=== PATIENT | female | born 1995 | race African-American/Black ===

== ENCOUNTER 2020-02-22 23:02 | Emergency (ER) | payer OTHER ==
[~2020-02-22] VITALS: Ht 162.6 cm; Wt 106.8 kg
[2020-02-22 23:20] VITALS: TEMP 98.2
[2020-02-22 23:55] LABS: BASO % 0.4 % (0.0-2.0); EOS # 0.1 (0.0-0.7); EOS % 1.5 % (0-4.0); GRAN # 3.4 (1.4-6.5); GRAN % 42.8 % (42.2-75.2); HEMOGLOBIN 11.2 g/dl (12.5-16.0); LYMPH # 3.2 (1.2-3.4); MEAN CELL VOLUME 94 fl (80.0-100.0); MEAN CORPUSCULAR HEMOGLOBIN 30 pg (27.0-31.0); MEAN CORPUSCULAR HGB CONC 32 g/dl (33.0-37.0); MEAN PLATELET VOLUME 10.9 fl (7.4-10.4); MONO # 1.1 (0.1-0.6); MONO % 14.2 % (1.7-9.3); PLATELET COUNT 256 K/mm3 (130-400); RED BLOOD COUNT 3.72 M/mm3 (4.10-5.30); REDCELL DISTRIBUTION WIDTH-CV 12.5 % (11.5-14.5)
[2020-02-23 00:07] LABS: ALANINE AMINOTRANSFERASE 23 U/L (4-34); ALBUMIN 4.2 gm/dL (3.5-5.0); ALKALINE PHOSPHATASE 76 U/L (50-136); ANION GAP 8 mmol/L (7-16); AST,SGOT 24 U/L (15-37); BILIRUBIN,TOTAL 0.2 mg/dL (0.0-1.0); BLOOD UREA NITROGEN 11 mg/dL (7-17); CALCIUM 8.9 mg/dL (8.4-10.2); CARBON DIOXIDE 24 mmol/L (22-30); CHLORIDE 106 mmol/L (98-107); CREATININE, serum 0.59 (0.52-1.25); GLUCOSE 101 mg/dL (74-106); POTASSIUM 4.4 mmol/L (3.4-5.0); SODIUM 137 mmol/L (137-145); TOTAL PROTEIN 8.1 gm/dL (6.4-8.2)
[2020-02-23 00:21] LABS: TROPONIN-I < 0.012 ng/mL (0.000-0.035)
[2020-02-23] MEDS ORDERED: PROTONIX 40MG T40 MG PO (01:05)
[2020-02-23 01:18] VITALS: BP 120/71; PULSE 62
== END 2020-02-23 01:18 | disposition home or self-care (01) ==
LOC: COL.ER 23:02
PROVIDERS: Emergency Medicine
DX: R07.89 Other chest pain (principal); Z82.49 Family history of ischemic heart disease and other diseases of the circulatory system; Z32.02 Encounter for pregnancy test, result negative

== ENCOUNTER → 2020-08-09 | Outpatient (REF) ==
[~2020-08-09] MED LIST: PROTONIX 40MG T40 MG PO
== END ==
LOC: WSOH 14:13
DX: U07.1 COVID-19 (principal)